=== PATIENT | female | born 1965 | race Two or more races ===

== ENCOUNTER 2017-11-15 11:03 | Outpatient (CLI) | payer BC | END 2017-11-15 11:19 | disposition home or self-care (01) | LOC: MAMO-SONO 11:03 | DX: Z12.31 Encounter for screening mammogram for malignant neoplasm of breast (principal); N61.0 Mastitis without abscess ==

== ENCOUNTER 2017-11-17 14:06 | Outpatient (CLI) | payer OTHER | END 2017-11-17 14:07 | disposition home or self-care (01) | LOC: NUCLEAR 14:06 | DX: M81.0 Age-related osteoporosis without current pathological fracture (principal) ==

== ENCOUNTER 2017-11-21 09:21 | Outpatient (CLI) | payer BC ==
[~2017-11-21] VITALS: Ht 175.3 cm; Wt 61.2 kg
== END 2017-11-21 09:40 | disposition home or self-care (01) ==
LOC: OFIC 805 09:21
DX: H93.13 Tinnitus, bilateral (principal); H90.3 Sensorineural hearing loss, bilateral

== ENCOUNTER 2017-11-28 12:42 | Outpatient (CLI) | payer BC ==
[~2017-11-28] VITALS: Ht 152.4 cm; Wt 61.2 kg
== END 2017-11-28 13:00 | disposition home or self-care (01) ==
LOC: OFIC 805 12:42
DX: H90.3 Sensorineural hearing loss, bilateral (principal); H93.13 Tinnitus, bilateral

== ENCOUNTER 2017-12-26 10:51 | Outpatient (CLI) | payer BC ==
[~2017-12-26] VITALS: Ht 152.4 cm; Wt 61.2 kg
== END 2017-12-26 11:15 | disposition home or self-care (01) ==
LOC: OFIC 805 10:51
DX: H90.3 Sensorineural hearing loss, bilateral (principal); H93.13 Tinnitus, bilateral

== ENCOUNTER 2018-03-01 09:17 | Outpatient (CLI) | payer BC | END 2018-03-01 16:00 | disposition home or self-care (01) | LOC: MRI 09:17 | DX: H93.13 Tinnitus, bilateral (principal) | CPT/HCPCS: 70553 ==

== ENCOUNTER 2018-03-10 15:23 | Outpatient (CLI) | payer BC ==
[~2018-03-10] VITALS: Ht 152.4 cm; Wt 61.2 kg
== END 2018-03-10 15:45 | disposition home or self-care (01) ==
LOC: OFIC 805 15:23
DX: H93.13 Tinnitus, bilateral (principal)

== ENCOUNTER 2018-03-24 07:48 | Outpatient (CLI) | payer BC ==
[~2018-03-24] VITALS: Ht 152.4 cm; Wt 61.2 kg
== END 2018-03-24 08:15 | disposition home or self-care (01) ==
LOC: OFIC 805 07:48
DX: H93.13 Tinnitus, bilateral (principal); H90.3 Sensorineural hearing loss, bilateral

== ENCOUNTER 2019-06-29 11:14 | Outpatient (CLI) | payer OTHER | END 2019-06-29 16:08 | disposition home or self-care (01) | LOC: MAMO-SONO 11:14 | DX: N60.11 Diffuse cystic mastopathy of right breast (principal); N60.12 Diffuse cystic mastopathy of left breast; Z12.31 Encounter for screening mammogram for malignant neoplasm of breast ==